=== PATIENT | female | born 1970 | race Hispanic/Latino ===

== ENCOUNTER 2016-10-06 15:25 | Emergency (ER) | payer OTHER ==
[~2016-10-06] VITALS: Ht 160 cm; Wt 74.8 kg
[~2016-10-06 15:25] MED LIST: ALBUTEROL0.09 MG/A1 INH; BACTRIM DS 8001 TAB PO; BENADRYL ALLERG25 MG PO; CIPRO 500MG TA500 MG PO; DICLOFENAC SODI75 M2 PO; KEFLEX 250MG C250 MG PO; PENICILLIN V P500 M1 PO; PREDNISONE 20MG20 MG PO; PYRIDIUM200 MG PO; VICODIN 300 MG-1 TAB PO
[2016-10-06 16:10] LABS: ABSOLUTE BASOPHIL COUNT 0.1 /CUMM (0.0-0.2); ABSOLUTE EOSINOPHIL COUNT 0.5 /CUMM (0.0-0.7); ABSOLUTE GRANULOCYTE CT 7.7 /CUMM (1.4-6.5); ABSOLUTE LYMPH COUNT 3.2 /CUMM (1.2-3.4); BASOPHIL % 0.7 % (0.0-2.0); EOSINOPHIL % 3.7 % (0-5); HEMATOCRIT 37.1 % (37-47); MEAN CORPUSCULAR HGB 29.5 PG (27.0-31.0); MEAN CORPUSCULAR HGB CONC 33.5 G/DL (33.0-37.0); MEAN CORPUSCULAR VOLUME 87.9 FL (81.0-99.0); PLATELET COUNT 175 /CUMM (130-400); RBC DISTRIBUTION WIDTH 14.8 % (11.5-14.5); RED BLOOD CELL CT 4.22 /CUMM (4.20-5.40); WHITE BLOOD CELL COUNT 12.5 /CUMM (4.8-10.8)
[2016-10-06 16:18] LABS: PT 12.1 SEC (9.4-12.5); PTT 30 SEC (25-37)
--- NOTE | 2016-10-06 18:07 | ED GENERAL ADULT ---
History of Present Illness General Chief Complaint: General Adult Stated Complaint: PT IS HAVING BLOOD IN THE STOOL Source: patient, family Exam Limitations: no limitations Vital Signs & Intake/Output Vital Signs & Intake/Output Vital Signs Date Time Temp Pulse Resp B/P B/P Pulse O2 O2 Flow FiO2 Mean Ox Delivery Rate 10/07 1951 98.1 77 16 103/68 88 Room Air 10/06 1559 97.8 94 18 109/68 99 Room Air Allergies Coded Allergies: NO KNOWN ALLERGIES (05/20/11) Reconcile Medications Diclofenac Sodium 75 MG TABLET.DR 1 TAB PO BID PRN PAIN Penicillin V Potassium 500 MG TABLET 1 TAB PO Q6 DENTAL ABSCESS Triage Note: C/O 2 EPSIODES OF BRIGHT RED RECTAL BLEEDING TODAY, NOW C/O MID ABDOMINAL PAIN WITH BURNING. DENIES NAUSEA, VOMITING OR DIARRHEA. Triage Nurses Notes Reviewed? yes Onset: Gradual Duration: day(s): (1) Timing: no prior history Injury Environment: home Severity: moderate Severity Numbers: 5 No Modifying Factors: none : No Patient currently breastfeeds: No HPI: Patient is a 46-year-old female presenting to the emergency department with chief complaint of bright red blood per rectum 2 episodes today. She reports that every time she moved her bowels today she noticed some bright red blood in the toilet bowl and on the paper. Denies any associated pain with the bowel movement. Reports mild cramping in the abdomen. Denies any nausea or vomiting. No history of similar symptoms. No recent travel or recent antibiotic use. Denies any blood in underwear. Denies any weakness lightheadedness or fatigue. (SAMANTHA CAMPOS) Past History Travel History Traveled to [place] past 21 day No Medical History Any Pertinent Medical History? see below for history Neurological: NONE EENT: NONE Cardiovascular: NONE Respiratory: NONE Gastrointestinal: NONE Hepatic: NONE Renal: NONE Musculoskeletal: NONE Psychiatric: alcohol dependence Endocrine: NONE Blood Disorders: NONE Cancer(s): NONE ROPING TENDER/Reproductive: NONE Surgical History Surgical History: non-contributory Psychosocial History Who do you live with Spouse What is your primary language Lao Tobacco Use: Current Daily Use Daily Tobacco Use Amount/Type: => 5 Cigarettes daily ETOH Use: denies use Family History Hx Contributory? No (SAMANTHA CAMPOS) Review of Systems Review of Systems Constitutional: Reports: no symptoms. Comments Review of systems: See HPI, All other systems negative. Constitutional, no chills fever or weight loss HEENT: No visual changes no sore throat no congestion Cardiovascular: No chest pain ,palpitation , orthopnea or ankle swelling Skin, no jaundice no rashes Respiratory: No dyspnea cough sputum or hemoptysis GI: No nausea no vomiting : No dysuria No hematuria Muscle skeletal: no back pain, no neck pain, Neurologic: No numbness no confusion Psych: No stress anxiety or depression,. Heme/endocrine: no polyuria or polydipsia Immunology: No splenectomy or history of AIDS (SAMANTHA CAMPOS) Physical Exam Physical Exam General Appearance: well developed/nourished, no apparent distress, alert, awake , comfortable Comments: Well-developed well-nourished person in no acute distress HEENT: extraocular motion intact, no nystagmus. Pupils equally round and reactive to light and accommodation. No scleral icterus or pallor TO palpable conjunctiva bilaterally. Nose is atraumatic. Moist oral mucosa. Pharynx normal.. No swelling or edema. Neck: Supple, no lymphadenopathy, normal range of motion without pain or tenderness Back: Nontender, no CVA tenderness. Full range of motion Cardiovascular: Regular rate and rhythms no murmurs rubs or gallops, normal JVP Respiratory: Chest nontender. No respiratory distress.breath sounds clear to auscultation bilaterally Abdomen: Soft, mildly tender to palpation in the periumbilical region. No rebound or guarding, nondistended, no appreciable organomegaly. Normal bowel sounds. No ascites Rectal: Several nonthrombosed hemorrhoids noted in the perirectal region, nontender. Brown stool guaiac positive. Extremity: No edema, no calf tenderness to palpation, normal and equal pulses. Neuro: Alert oriented x3 Skin: No appreciable rash on exposed skin, skin is warm and dry. Psych: Mood and affect is normal, memory and judgment is normal. Core Measures ACS in differential dx? No CVA/TIA Diagnosis: No Severe Sepsis Present: No Septic Shock Present: No (SAMANTHA CAMPOS) Progress Differential Diagnoses I considered the following diagnoses in my evaluation of the patient: Diverticulitis, diverticulosis, thrombosed hemorrhoids, hemorrhoid bleeding, anemia Plan of Care: Orders Procedure Date/time Status PARTIAL THROMBOPLASTIN TIME 10/06 1601 Complete PROTHROMBIN TIME 10/06 1601 Complete LACTIC ACID 10/06 1601 Complete CBC WITHOUT DIFFERENTIAL 10/06 1601 Complete BASIC METABOLIC PANEL 10/06 1601 Complete TYPE & SCREEN (NOT X-MATCH) 10/06 1601 Complete Laboratory Tests 10/06/16 1901: Lactic Acid Cancelled 10/06/16 1600: Anion Gap 12, Estimated GFR > 60, BUN/Creatinine Ratio 25.0, Glucose 107 H, Lactic Acid 0.9, Calcium 9.5, PT 12.1, INR 1.15, APTT 30, CBC w Diff NO MAN DIFF REQ, RBC 4.22, MCV 87.9, MCH 29.5, RDW 14.8 H, MPV 10.0, Gran % 62.0, Lymphocytes % 25.9, Monocytes % 7.7, Eosinophils % 3.7, Basophils % 0.7, Absolute Granulocytes 7.7 H, Absolute Lymphocytes 3.2, Absolute Monocytes 1.0 H, Absolute Eosinophils 0.5, Absolute Basophils 0.1, PUBS MCHC 33.5 Diagnostic Imaging: Viewed by Me: CT Scan. Discussed w/RAD: CT Scan. Radiology Impression: PATIENT: AIMEE NAVAS PRESENT AGE: 46 PATIENT ACCOUNT NO: [id number] : 72 LOCATION: [facility] ORDERING PHYSICIAN: SAMANTHA MCGILL SERVICE DATE: 10/06/16 EXAM TYPE: CAT - CT ABD & PELVIS W IV CONTRAST EXAMINATION: CT ABDOMEN AND PELVIS WITH CONTRAST CLINICAL INFORMATION: Bright red blood per rectum. Rule out diverticulitis. COMPARISON: CT dated 01/02/2007. TECHNIQUE: Multidetector volumetric imaging was performed of the abdomen and pelvis before and after the IV administration of 94 mL of Optiray 320 intravenous contrast. Sagittal and coronal reformatted images were obtained on the technologist's workstation. DLP: 369.28 mGy-cm FINDINGS: There are some patchy ground glass densities in the lung bases which may be due to subsegmental atelectasis. No pleural effusions are seen. The liver, gallbladder, spleen, pancreas, and right adrenal gland appear normal. There is a stable homogeneous 2.2 cm left adrenal gland mass when compared to imaging from 01/02/2007. The kidneys demonstrate symmetric nephrograms without versus. The abdominal aorta is normal in caliber. There is mild atherosclerotic wall calcification of the abdominal aorta and iliac vessels. No bulky retroperitoneal adenopathy is seen. No fluid collections are seen. There is a fat-containing supraumbilical hernia with a mild amount of surrounding fat stranding. The patient has had a prior appendectomy. Diverticular disease is noted in the sigmoid colon without visible pericolonic inflammatory change. There is no large bowel wall thickening. A moderate amount of stool is present within the colon. No free air is visible. The bladder is contracted and decompressed. The patient has had a prior hysterectomy. No inguinal adenopathy is seen. No suspicious bony lesions are seen. There are mild degenerative changes of the SI joints with vacuum phenomenon. IMPRESSION: No acute intra-abdominal or pelvic process to explain the patient's presenting symptoms. Sigmoid colonic diverticulosis without evidence of diverticulitis. No pericolonic inflammatory changes or large bowel thickening. Initial ED EKG: none (ERENDIRA MCGILL,) Departure Departure Time of Disposition: 1927 Disposition: HOME OR SELF CARE Condition: Stable Clinical Impression Primary Impression: Rectal bleeding Secondary Impressions: Diverticulosis Hemorrhoid Qualifiers: Hemorrhoid type: unspecified Qualified Code: K64.9 - Unspecified hemorrhoids Referrals: BRADLEY ARAIZA JR, DO PATIENT HAS NO PRIMARY CARE DR (PCP/Family) Additional Instructions: Follow-up with colorectal specialist if symptoms persist. Return for worsening symptoms or concerns. Increase fluid intake. Testes are CAT scan results. Avoid anti-inflammatories as this can make bleeding worse. PRESENT AGE: 46 PATIENT ACCOUNT NO: [id number] : 72 LOCATION: [facility] ORDERING PHYSICIAN: SAMANTHA MCGILL SERVICE DATE: 10/06/16 EXAM TYPE: CAT - CT ABD & PELVIS W IV CONTRAST EXAMINATION: CT ABDOMEN AND PELVIS WITH CONTRAST CLINICAL INFORMATION: Bright red blood per rectum. Rule out diverticulitis. COMPARISON: CT dated 01/02/2007. TECHNIQUE: Multidetector volumetric imaging was performed of the abdomen and pelvis before and after the IV administration of 94 mL of Optiray 320 intravenous contrast. Sagittal and coronal reformatted images were obtained on the technologist's workstation. DLP: 369.28 mGy-cm FINDINGS: There are some patchy ground glass densities in the lung bases which may be due to subsegmental atelectasis. No pleural effusions are seen. The liver, gallbladder, spleen, pancreas, and right adrenal gland appear normal. There is a stable homogeneous 2.2 cm left adrenal gland mass when compared to imaging from 01/02/2007. The kidneys demonstrate symmetric nephrograms without versus. The abdominal aorta is normal in caliber. There is mild atherosclerotic wall calcification of the abdominal aorta and iliac vessels. No bulky retroperitoneal adenopathy is seen. No fluid collections are seen. There is a fat-containing supraumbilical hernia with a mild amount of surrounding fat stranding. The patient has had a prior appendectomy. Diverticular disease is noted in the sigmoid colon without visible pericolonic inflammatory change. There is no large bowel wall thickening. A moderate amount of stool is present within the colon. No free air is visible. The bladder is contracted and decompressed. The patient has had a prior hysterectomy. No inguinal adenopathy is seen. No suspicious bony lesions are seen. There are mild degenerative changes of the SI joints with vacuum phenomenon. IMPRESSION: No acute intra-abdominal or pelvic process to explain the patient's presenting symptoms. Sigmoid colonic diverticulosis without evidence of diverticulitis. No pericolonic inflammatory changes or large bowel thickening. Supraumbilical midline abdominal wall fat containing hernia with a mild amount of surrounding soft tissue stranding. Correlate for any site tenderness. Stable 2.2 cm left adrenal gland mass which presumably represents an adenoma. Evidence of a prior hysterectomy and appendectomy. DICTATED BY: MARCELO MARTINEZ MD DATE/TIME DICTATED:10/06/161849 CAR PORTER:MANDO DATE/TIME TRANSCRIBED:10/06/161849 CONFIDENTIAL, DO NOT COPY WITHOUT APPROPRIATE AUTHORIZATION. <Electronically signed in Other Vendor System> SIGNED BY: MARCELO MARTINEZ MD 1903 Departure Forms: Customer Survey General Discharge Information (SAMANTHA CAMPOS) PA/HOST/HOSTESS RESTAURANT Co-Sign Statement Statement: ED Attending supervision documentation- [] I saw and evaluated the patient. I have also reviewed all the pertinent lab results and diagnostic results. I agree with the findings and the plan of care as documented in the PA's/HOST/HOSTESS RESTAURANT's documentation. [X] I have reviewed the ED Record and agree with the PA's/HOST/HOSTESS RESTAURANT's documentation. [] Additions or exceptions (if any) to the PAs/HOST/HOSTESS RESTAURANT's note and plan are summarized below: [] (STEPHANI MACARIO,JEAN-CLAUDE) Critical Care Note Critical Care Note Critical Care Time: non-applicable (ERENDIRA MCGILL,)
--- NOTE | 2016-10-06 19:04 | CT SCAN REPORT ---
EXAMINATION: CT ABDOMEN AND PELVIS WITH CONTRAST CLINICAL INFORMATION: Bright red blood per rectum. Rule out diverticulitis. COMPARISON: CT dated 01/02/2007. TECHNIQUE: Multidetector volumetric imaging was performed of the abdomen and pelvis before and after the IV administration of 94 mL of Optiray 320 intravenous contrast. Sagittal and coronal reformatted images were obtained on the technologist's workstation. DLP: 369.28 mGy-cm FINDINGS: There are some patchy ground glass densities in the lung bases which may be due to subsegmental atelectasis. No pleural effusions are seen. The liver, gallbladder, spleen, pancreas, and right adrenal gland appear normal. There is a stable homogeneous 2.2 cm left adrenal gland mass when compared to imaging from 01/02/2007. The kidneys demonstrate symmetric nephrograms without versus. The abdominal aorta is normal in caliber. There is mild atherosclerotic wall calcification of the abdominal aorta and iliac vessels. No bulky retroperitoneal adenopathy is seen. No fluid collections are seen. There is a fat-containing supraumbilical hernia with a mild amount of surrounding fat stranding. The patient has had a prior appendectomy. Diverticular disease is noted in the sigmoid colon without visible pericolonic inflammatory change. There is no large bowel wall thickening. A moderate amount of stool is present within the colon. No free air is visible. The bladder is contracted and decompressed. The patient has had a prior hysterectomy. No inguinal adenopathy is seen. No suspicious bony lesions are seen. There are mild degenerative changes of the SI joints with vacuum phenomenon. IMPRESSION: No acute intra-abdominal or pelvic process to explain the patient's presenting symptoms. Sigmoid colonic diverticulosis without evidence of diverticulitis. No pericolonic inflammatory changes or large bowel thickening. Supraumbilical midline abdominal wall fat containing hernia with a mild amount of surrounding soft tissue stranding. Correlate for any site tenderness. Stable 2.2 cm left adrenal gland mass which presumably represents an adenoma. Evidence of a prior hysterectomy and appendectomy.
[2016-10-06 19:52] VITALS: BP 103/68
== END 2016-10-06 19:47 ==
LOC: ERH 15:25
PROVIDERS: Emergency Medicine
DX: K57.92 Diverticulitis of intestine, part unspecified, without perforation or abscess without bleeding (principal); K64.9 Unspecified hemorrhoids
CPT/HCPCS: 74177